=== PATIENT | female | born 1975 | race African-American/Black ===

== ENCOUNTER 2017-12-07 12:05 | Emergency (ER) | payer OTHER ==
[2017-12-07 12:15] VITALS: BP 125/71; PULSE 75; TEMP 98; BMI 32.9
--- NOTE | 2017-12-07 12:57 | PDOC ---
History of Present Illness - General Chief Complaint: Injury Stated Complaint: EAR LOBE INJURY Time Seen by Provider: 12/07/17 12:22 Past History - Past Medical History Allergies/Adverse Reactions: Allergies Allergy/AdvReac Type Severity Reaction Status Date / Time Penicillins Allergy Swelling Verified 12/07/17 12:10 Home Medications: Ambulatory Orders Clonazepam [Klonopin] 1 mg PO BID PRN 12/07/17 Sertraline HCl [Zoloft] 100 mg PO DAILY 12/07/17 Asthma: No Cancer: No Cardiac Disorders: No COPD: No Diabetes: No HTN: No Psychiatric Problems: Yes (anxiety) Seizures: No Thyroid Disease: No - Suicide/Smoking/Psychosocial Hx Smoking History: Never smoked Have you smoked in the past 12 months: No Information on smoking cessation initiated: No Hx Alcohol Use: No Drug/Substance Use Hx: No Substance Use Type: None Hx Substance Use Treatment: No *Physical Exam - Vital Signs Last Vital Signs Temp Pulse Resp BP Pulse Ox 98 F 75 16 125/71 100 12/07/17 12:05 12/07/17 12:05 12/07/17 12:05 12/07/17 12:05 12/07/17 12:05 *DC/Admit/Observation/Transfer Diagnosis at time of Disposition: Foreign body in ear, bilateral Qualifiers: Encounter type: initial encounter Qualified Code(s): T16.1XXA - Foreign body in right ear, initial encounter; T16.2XXA - Foreign body in left ear, initial encounter - Discharge Dispostion Disposition: HOME Condition at time of disposition: Good Decision to Admit order: No - Referrals Referrals: Sanjiv Howard MD [Primary Care Provider] - - Patient Instructions Printed Discharge Instructions: DI for Removal of Foreign Body From Ear Additional Instructions: Your earrings were removed today. Please do not put any new earring into the ear until the whole has healed. Use bacitracin to the area to prevent infection. Follow-up With her primary care doctor. Return to the emergency department if you have increased fevers, chills, headache, or any changes in your symptoms. - Post Discharge Activity Forms/Work/School Notes: Back to Work
== END 2017-12-07 13:48 | disposition home or self-care (01) ==
LOC: JERFT 12:05
DX: T16.1XXA Foreign body in right ear, initial encounter (principal); T16.2XXA Foreign body in left ear, initial encounter; F41.9 Anxiety disorder, unspecified
CPT/HCPCS: 99281-25

== ENCOUNTER 2018-09-10 10:55 | Emergency (ER) | payer OTHER ==
[2018-09-10 11:27] VITALS: BP 123/77; PULSE 95; TEMP 98.3; BMI 29.2
--- NOTE | 2018-09-10 12:36 | PDOC ---
History of Present Illness - General Chief Complaint: Cold Symptoms Stated Complaint: COLD SYMPTOMS Time Seen by Provider: 09/10/18 12:10 - History of Present Illness Initial Comments: 09/10/18 12:31 43-year-old female with a past medical history significant for anxiety presents for evaluation of sinus congestion pressure and headaches 6 days chills and night sweats no fevers Past History - Past Medical History Allergies/Adverse Reactions: Allergies Allergy/AdvReac Type Severity Reaction Status Date / Time No Known Allergies Allergy Verified 09/10/18 12:31 Home Medications: Ambulatory Orders Clonazepam [Klonopin] 1 mg PO BID PRN 12/07/17 Sertraline HCl [Zoloft] 100 mg PO DAILY 12/07/17 Amox-Tr/K Cl [Augmentin - 875Mg Tablet] 1 tab PO BID #20 tablet 09/10/18 Budesonide [Rhinocort Allergy] 1 spray NS ONCE #1 spray.pump 09/10/18 Asthma: No Cancer: No Cardiac Disorders: No COPD: No Diabetes: No HTN: No Psychiatric Problems: Yes (anxiety) Seizures: No Thyroid Disease: No - Suicide/Smoking/Psychosocial Hx Smoking History: Never smoked Have you smoked in the past 12 months: No Hx Alcohol Use: No Drug/Substance Use Hx: No Substance Use Type: None Hx Substance Use Treatment: No Review of Systems - Review of Systems Constitutional: Yes: Chills, Malaise, Night Sweats. No: Fever HEENTM: Yes: Nose Congestion Respiratory: Yes: Cough *Physical Exam - Vital Signs Last Vital Signs Temp Pulse Resp BP Pulse Ox 98.3 F 95 H 20 123/77 99 09/10/18 11:24 09/10/18 11:24 09/10/18 11:24 09/10/18 11:24 09/10/18 11:24 - Physical Exam Comments: 09/10/18 12:31 HEAD: NC/AT EYES: Conjuntiva clear Ears: Canals and TM's normal NOSE: Clear discharge with injected turbinates THROAT: Moist mucous membrances, oral pharanx clear, uvula midline NECK: Supple without adenopathy CARDIAC: S1 S2 LUNGS: CTA Full and Equal breath sounds ABDOMEN: Soft NT ND MS: Full ROM in all joints without edema NEUROLOGIC: No gross sensory or motor deficits, NVID SKIN: Normal color and temperature no lesions or rashes Moderate Sedation - Procedure Monitoring Vital Signs: Procedure Monitoring Vital Signs Temperature 98.3 F 09/10/18 11:24 Pulse Rate 95 H 09/10/18 11:24 Respiratory Rate 20 09/10/18 11:24 Blood Pressure 123/77 09/10/18 11:24 O2 Sat by Pulse Oximetry (%) 99 09/10/18 11:24 Medical Decision Making - Medical Decision Making 09/10/18 12:34 Symptoms and history consistent with a bacterial sinusitis I will treat her. Her prior charts she has a history of penicillin ALLERGIES however she states she is not ALLERGIC to penicillin she's had penicillin in the past without rashes or anaphylactic or adverse reactions. I will have her follow-up with ENT. *DC/Admit/Observation/Transfer Diagnosis at time of Disposition: Sinusitis - Discharge Dispostion Disposition: HOME Condition at time of disposition: Stable Decision to Admit order: No - Referrals Referrals: Nima Blunt MD [Staff Physician] - - Patient Instructions Printed Discharge Instructions: Sinusitis, DI for Sinusitis Additional Instructions: Please take the antibiotics and use the nasal spray as directed. Follow-up with ENT as directed one to 2 days for further evaluation and treatment options. Return to the emergency room for worsening symptoms - Post Discharge Activity
== END 2018-09-10 12:42 | disposition home or self-care (01) ==
LOC: JER 10:55 → JERFT 10:55
DX: J01.90 Acute sinusitis, unspecified (principal)
CPT/HCPCS: 99281-25

== ENCOUNTER 2018-09-27 16:21 | Emergency (ER) | payer OTHER ==
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
[2018-09-27 16:33] VITALS: BP 112/74; PULSE 83; TEMP 98.3; BMI 29.1
[2018-09-27] MEDS ORDERED: IBUPROFEN 400 MG TABLET (FP) PO ONE ×2 (17:14→17:17)
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
== END 2018-09-27 17:41 | disposition home or self-care (01) ==
LOC: JERFT 16:21
DX: S46.811A Strain of other muscles, fascia and tendons at shoulder and upper arm level, right arm, initial encounter (principal); S86.811A Strain of other muscle(s) and tendon(s) at lower leg level, right leg, initial encounter; V48.6XXA Car passenger injured in noncollision transport accident in traffic accident, initial encounter; Y92.414 Local residential or business street as the place of occurrence of the external cause; Y93.89 Activity, other specified; Y99.8 Other external cause status
CPT/HCPCS: 99281-25

== ENCOUNTER 2019-02-08 09:21 | Emergency (ER) | payer SELFPAY ==
[2019-02-08 09:28] VITALS: BMI 34.4
--- NOTE | 2019-02-08 10:43 | PDOC ---
History of Present Illness - General Chief Complaint: Pain Stated Complaint: LT FOOT INJURY Time Seen by Provider: 02/08/19 09:40 History Source: Patient Exam Limitations: No Limitations - History of Present Illness Initial Comments: 02/08/19 10:07 43-year-old female presents to ED with complaints of left foot pain over her surgical site which she states 2 weeks ago had a neuroma and so the bone was shaved to alleviate discomfort on the nerve. Patient states has had discomfort past 4-5 days worsening with ambulation and did not contact the surgeon but came to the ER for further evaluation. Patient denies any numbness tingling to area decreased range of motion, swelling or redness. Timing/Duration: other Severity: mild Associated Symptoms: reports: denies symptoms Past History - Travel Traveled outside of the country in the last 30 days: No Close contact w/someone who was outside of country & ill: No - Past Medical History Allergies/Adverse Reactions: Allergies Allergy/AdvReac Type Severity Reaction Status Date / Time No Known Allergies Allergy Verified 02/08/19 09:25 Home Medications: Ambulatory Orders Clonazepam [Klonopin] 1 mg PO BID PRN 12/07/17 Sertraline HCl [Zoloft] 100 mg PO DAILY 12/07/17 Asthma: No Cancer: No Cardiac Disorders: No COPD: No Diabetes: No HTN: No Psychiatric Problems: Yes (anxiety) Seizures: No Thyroid Disease: No - Suicide/Smoking/Psychosocial Hx Smoking History: Never smoked Have you smoked in the past 12 months: No Hx Alcohol Use: No Drug/Substance Use Hx: No Substance Use Type: None Hx Substance Use Treatment: No Patient Lives Alone: No Lives with/in: spouse/SO Review of Systems - Review of Systems Able to Perform ROS?: Yes Constitutional: No: Symptoms Reported Musculoskeletal: Yes: Joint Pain (left foot) Integumentary: No: Symptoms Reported Neurological: No: Numbness, Tingling, Weakness *Physical Exam - Vital Signs Last Vital Signs Temp Pulse Resp BP Pulse Ox 98.6 F 78 18 120/77 99 02/08/19 09:22 02/08/19 09:22 02/08/19 09:22 02/08/19 09:22 02/08/19 09:22 - Physical Exam General Appearance: Yes: Nourished, Appropriately Dressed. No: Apparent Distress Vascular Pulses: Doralis-Pedis (L): 2+ Extremity: positive: Normal Capillary Refill, Normal Inspection, Normal Range of Motion, Tender (over the third metatarsal of the left foot near intact healed scar at the base of her third toe and distal aspect of metatarsal. No increased warmth no skin discoloration and no fluctuance no decreased sensation) Integumentary: positive: Normal Color, Warm, Moist Neurologic: positive: Motor Strength 5/5 (ambulatory) ED Treatment Course - RADIOLOGY Radiology Studies Ordered: Category Date Time Status FOOT-LEFT [RAD] Stat Radiology 02/08/19 09:51 Completed Medical Decision Making - Medical Decision Making 02/08/19 10:09 CC: Left foot pain with past 4-5 days worsening with ambulation patient had a neuroma with surgical correction involving bone removal 2 weeks ago by a senior contract specialist. No other complaints Exam: Tender over the third metatarsal and near the incision no abnormal findings Plan: Foot x-ray to the visualized bones and possible spur formation 02/08/19 10:41 X-ray negative for acute pathology patient recommended to massage area to alleviate any adhesions and take NSAID such as Motrin for discomfort *DC/Admit/Observation/Transfer Diagnosis at time of Disposition: Left foot pain - Discharge Dispostion Disposition: HOME Condition at time of disposition: Good - Referrals Referrals: Sanjiv Howard MD [Primary Care Provider] - - Patient Instructions Printed Discharge Instructions: DI for Foot Pain Additional Instructions: I recommended to massage area to alleviate any adhesions and take NSAID such as Motrin for discomfort. Also follow up with surgeon - Post Discharge Activity
[2019-02-08 18:43] VITALS: BP 112/78; PULSE 67; TEMP 97
== END 2019-02-08 11:05 | disposition home or self-care (01) ==
LOC: JERFT 09:21 → JER 09:21 → JERFT 11:05
DX: M79.672 Pain in left foot (principal); F41.9 Anxiety disorder, unspecified
CPT/HCPCS: 73630-TC-LT; 99282-25

== ENCOUNTER 2019-09-05 06:18 | Day surgery (SDC) | payer OTHER ==
[2019-09-03 12:09] VITALS: BMI 35.7
[2019-09-05] MEDS ORDERED: ROPIVACAINE HCL 0.5% 30ML VIAL ONE ×2 (07:32→07:38)
[2019-09-05] MEDS ORDERED: MIDAZOLAM HCL 2 MG/2 ML SINGLE DOSE VIAL ONE ×2 (07:44→07:45)
--- NOTE | 2019-09-05 08:08 | HP ---
Admitting History and Physical - Admission Chief Complaint: left inguinal pain and bulge History Source: Patient <Naveed Tobar - Last Filed: 09/05/19 08:31> - Admission History of Present Illness: The patient is a 44 yo female who present today for surgery with Dr. TOBAR. She was seen in his office for left inguinal intermittent pain and buldge and being seen by her PMD. Her pMD also obtained an abdominal CT scan which revealed b/l fat containing inguinal hernias. She denies any abd pain today, no nausea or chills. History Source: Patient Limitations to Obtaining History: No Limitations - Past Medical History Cardiovascular: No: Deep Vein Thrombosis, HTN Pulmonary: No: Asthma Gastrointestinal: Yes: Constipation. No: Gastritis, GERD Renal/: No: Renal Failure, Hematuria, Renal Calculi, UTI ...LMP: 08/26/19 ...: No Psych: Yes: Anxiety, Depression Musculoskeletal: Yes: Chronic low back pain - Past Surgical History Additional Past Surgical History: surgery to left ankle - Smoking History Smoking history: Never smoked Have you smoked in the past 12 months: No - Alcohol/Substance Use Hx Alcohol Use: Yes (rare) <Jazmin Bernal - Last Filed: 09/05/19 12:10> Home Medications <AmadouNaveed - Last Filed: 09/05/19 08:31> <Jazmin Bernal - Last Filed: 09/05/19 12:10> - Allergies Allergies/Adverse Reactions: Allergies Allergy/AdvReac Type Severity Reaction Status Date / Time No Known Allergies Allergy Verified 09/05/19 07:08 - Home Medications Home Medications: Ambulatory Orders Clonazepam [Klonopin] 1 mg PO BID PRN 12/07/17 Sertraline HCl [Zoloft] 50 mg PO DAILY 12/07/17 oxyCODONE HCL [Roxicodone -] 5 mg PO Q6H PRN #20 tablet MDD 6 09/05/19 Review of Systems - Review of Systems Constitutional: denies: Chills, Fever Neck: denies: Decreased ROM, Pain on Movement Cardiovascular: denies: Chest Pain, Edema, Palpitations Respiratory: denies: Cough, Snoring, SOB Gastrointestinal: reports: Constipation. denies: Abdominal Pain, Nausea Genitourinary: denies: Burning, Dysuria, Hematuria Musculoskeletal: reports: Back Pain (lower intermittent back pain) Integumentary: denies: Blister, Bruising Neurological: denies: Headache, Numbness, Parasthesia Hematology/Lymphatic: denies: Easily Bruised, Excessive Bleeding Psychiatric: reports: Anxiety, Depression <Jazmin Bernal - Last Filed: 09/05/19 12:10> Physical Examination Vital Signs: Vital Signs Temperature 98.1 F 09/05/19 07:07 Pulse Rate 87 09/05/19 07:07 Respiratory Rate 09/05/19 07:07 Blood Pressure 123/89 09/05/19 07:07 O2 Sat by Pulse Oximetry (%) 99 09/05/19 07:00 Constitutional: Yes: Well Nourished, No Distress Eyes: Yes: Conjunctiva Clear HENT: Yes: Normocephalic Neck: Yes: Supple Cardiovascular: Yes: Regular Rate and Rhythm Respiratory: Yes: CTA Bilaterally Gastrointestinal: Yes: Normal Bowel Sounds, Soft, Hernia (left inguinal bulge on Valsalva maneuver, questionable right inguinal bulge) ...Rectal Exam: Yes: Deferred Renal/: Yes: WNL Extremities: Yes: WNL Edema: No Integumentary: Yes: WNL Neurological: Yes: Alert, Oriented ...Motor Strength: WNL Psychiatric: Yes: Alert, Oriented <Naveed Tobar - Last Filed: 09/05/19 08:31> Vital Signs: Vital Signs Temperature 98.1 F 09/05/19 07:07 Pulse Rate 87 09/05/19 07:07 Respiratory Rate 09/05/19 07:07 Blood Pressure 123/89 09/05/19 07:07 O2 Sat by Pulse Oximetry (%) 99 09/05/19 07:00 Constitutional: Yes: Well Nourished, No Distress Eyes: Yes: Conjunctiva Clear HENT: Yes: Normocephalic Neck: Yes: Supple Cardiovascular: Yes: Regular Rate and Rhythm Respiratory: Yes: CTA Bilaterally Gastrointestinal: Yes: Normal Bowel Sounds, Soft, Hernia ...Rectal Exam: Yes: Deferred <Jazmin Bernal - Last Filed: 09/05/19 12:10> Imaging - Results Cat Scan: Report Reviewed, Image Reviewed <Naveed Tobar - Last Filed: 09/05/19 08:31> Problem List - Problems (1) Left inguinal hernia Assessment/Plan: possible bilateral inguinal hernias robotic LIH repair with mesh, possible bilateral repair Code(s): K40.90 - UNIL INGUINAL HERNIA, W/O OBST OR GANGR, NOT SPCF RECUR <Naveed Tobar - Last Filed: 09/05/19 08:31>
[2019-09-05] MEDS ORDERED: LIDOCAINE HCL/PF 2% SDV 5ML VIAL ONE (08:16)
[2019-09-05] MEDS ORDERED: ROCURONIUM BROMIDE 50 MG/5 ML SYRINGE ONE ×3 (08:16→10:05)
[2019-09-05] MEDS ORDERED: fentaNYL CITRATE 250 MCG/5 ML VIAL ONE (08:16)
[2019-09-05] MEDS ORDERED: ceFAZolin SODIUM 1 GM VIAL ONE (08:16)
[2019-09-05] MEDS ORDERED: PROPOFOL 20 ML ONE ×2 (08:16)
[2019-09-05] MEDS ORDERED: ceFAZolin SODIUM 1 GM VIAL IVPB ONE (08:46)
[2019-09-05] MEDS ORDERED: DEXAMETHASONE SOD PHOSPHATE 4 MG/1 ML VIAL ONE (08:54)
[2019-09-05] MEDS ORDERED: NEOSTIGMINE METHYLSULFATE 0.5 MG/ML - 10 ML MDV ONE (10:05)
[2019-09-05] MEDS ORDERED: GLYCOPYRROLATE 0.2 MG/1 ML VIAL ONE (10:05)
[2019-09-05] MEDS ORDERED: oxyCODONE HCL 5 MG TABLET PO PRN ×2 (11:32→12:35)
[2019-09-05] MEDS ORDERED: IBUPROFEN 800 MG/8 ML IJ IVPB PRN (11:32)
[2019-09-05] MEDS ORDERED: ONDANSETRON 4 MG/2 ML VIAL IVPUSH PRN (11:32)
[2019-09-05] MEDS ORDERED: ACETAMINOPHEN 1000 MG/100 ML VIAL (NON FORMULARY) IVPB PRN (11:33)
--- NOTE | 2019-09-05 11:43 | OP ---
Operative Note - Note: Operative Date: 09/05/19 Pre-Operative Diagnosis: b/l inguinal hernia Operation: laparoscopic robotic assited bilateral inguinal hernia Surgeon: Naveed Tobar Licensed Marriage And Family Therapist: Jazmin Bernal Anesthesiologist/INTERNET SALES REPRESENTATIVE: Randi Mccloud Estimated Blood Loss (mls): 20 Drains, Volume Out (mls): 500 (rosa) Fluid Volume Replaced (mls): 800 Operative Report Dictated: Yes
[2019-09-05] MEDS ORDERED: LACTATED RINGERS SOLUTION 1,000 ML IV SCH (11:45)
--- NOTE | 2019-09-05 11:45 | SURG ---
Surgery Senior Logistics Manager Note Senior Logistics Manager: Jazmin Bernal PA-C Date of Service: 09/05/19 Diagnosis: b/l inguinal hernia Procedure: laparoscopic robotic assisted bilateral inguinal hernia I was present for the entirety of the operative procedure. For further detail, please refer to operative report. Visit type - Case Type Case Type: Scheduled - Emergency Emergency Visit: No - New patient This patient is new to me today: Yes Date on this admission: 09/05/19
[2019-09-05] MEDS ORDERED: ACETAMINOPHEN INJECTION 100 ML IVPB ONE (11:48)
[2019-09-05] MEDS ORDERED: IBUPROFEN 800 MG/8 ML IJ IVPB ONE (11:52)
[2019-09-05] MEDS ORDERED: ONDANSETRON 4 MG/2 ML VIAL ONE ×2 (12:52→15:19)
[2019-09-05 17:43] VITALS: PULSE 78
[2019-09-05 17:46] VITALS: BP 140/70; TEMP 98.2
--- NOTE | 2019-09-08 08:48 | OP ---
DATE OF OPERATION: 09/05/2019 PROCEDURE: Robotic-assisted laparoscopic bilateral inguinal hernia repair with mesh. PREOPERATIVE DIAGNOSIS: Left inguinal hernia, rule out bilateral inguinal hernia. POSTOPERATIVE DIAGNOSIS: Bilateral inguinal hernia. SURGEON: Naveed Tobar MD SUGAR CONTROLLER: DAYANARA Fontaine ANESTHESIA: General endotracheal. FINDINGS AND PROCEDURE: This is a 44-year-old female who presented with a [id number]-year history of left inguinal pain associated with a bulge in her groin. The patient on physical exam had visible inguinal bulge which was reducible and a somewhat questionable right inguinal bulge so we recommend a right inguinal hernia repair . A CT scan of the abdomen and pelvis revealed bilateral fat-containing femoral with right side more than the left side. So, patient was advised robotic inguinal hernia repair of the right inguinal canal with possible bilateral hernia repair. On the day of the procedure, patient was also complaining of bilateral inguinal pain. Informed consent was obtained after discussing the risks, benefits, and alternatives to the procedure. Patient was brought to the operating room and placed on the table in supine position. General endotracheal anesthesia was administered. The abdomen was prepped and draped in the usual sterile fashion. Both arms were tucked to the sides. The peritoneal cavity was entered using the Veress needle technique via an 8-mm supraumbilical incision. Pneumoperitoneum was established. An 8-mm port was then inserted into the peritoneal cavity. This was followed by insertion of a 3D laparoscope, and the peritoneal cavity was carefully inspected and was noted to be free of inadvertent injury. Patient was then placed in steep Trendelenburg position. There was indentation of both the inguinal canals with the left more than the right side. Two 8-mm ports were inserted on each side of the midline 8 cm away from each other ____ position. Afterwards, the target organ was set and the robotic arms were docked. The fenestrated bipolar instrument was inserted into the left-sided port, and the EndoWrist brandon connected to monopolar cautery was inserted at the right-sided port. The undersigned then scrubbed out to commence the console part of the procedure. The left inguinal canal was addressed first by incising the peritoneum at the level of the anterior-superior iliac spine using the EndoWrist brandon. A pocket was then created by dissecting the preperitoneal space between the inferior epigastric vessels as the landmark. Dissection was carried laterally towards the anterior-superior iliac spine inferiorly towards the psoas muscle. Medially, the dissection was carried towards the underside of the symphysis pubis. The femoral canal was carefully inspected, and small indentation containing a small amount of preperitoneal fat. This was carefully dissected away from the femoral canal. The large preperitoneal fat along the round ligament was reduced from the internal ring all the way down as far back as possible. The internal ring was then carefully inspected and there was no of herniated preperitoneal fat. The peritoneal reflection was dissected away from the round ligament as possible the mesh. After dissection was deemed satisfactory, the right inguinal canal was explored. a small amount of preperitoneal fat was herniated into the internal ring. Dissection was carefully taken down to clear the internal ring of preperitoneal fat. The round ligament, which was severely attenuated on the right side, was also as possible. The dissection was carried medially towards the , and again, a small indentation of the femoral canal was noted and this was filled with preperitoneal fat. Dissection was carried towards the anterior-superior iliac spine and inferiorly towards the psoas muscle. After the dissection was deemed satisfactory, right-sided and left-sided pelvic muscles were closed to cover the internal ring, the femoral canal, and the inguinal floor. After deployment was deemed satisfactory, the peritoneal pockets were closed with a continuous V-Loc 2-0 absorbable suture. Peritoneal cavity was again carefully inspected and was noted to be free of any active bleeding. The instruments were removed and the . The robotic arms were undocked, and the pneumoperitoneum was evacuated and the ports were removed and the wounds were closed with subcuticular Biosyn 4-0 sutures. Skin closed with Dermabond. The patient was successfully extubated and transferred to the postanesthesia care unit in satisfactory condition. Estimated blood loss was about 15 mL. Wound class: Clean. The patient received a gram of Ancef prior to the start of the procedure. Jenna [id number]
== END 2019-09-05 17:30 | disposition home or self-care (01) ==
LOC: JASU-SURG 06:18
PROVIDERS: ATTEND Surgery
PROC: 8E0W4CZ Robotic Assisted Procedure of Trunk Region, Percutaneous Endoscopic Approach (ICD-10-PCS; 2019-09-05)
PROC: 0YUA4JZ Supplement Bilateral Inguinal Region with Synthetic Substitute, Percutaneous Endoscopic Approach (ICD-10-PCS; principal; 2019-09-05 08:00)
DX: K40.20 Bilateral inguinal hernia, without obstruction or gangrene, not specified as recurrent (principal)
CPT/HCPCS: 49650; S2900; 84703; 94760; J0131

== ENCOUNTER 2020-01-14 19:20 | Emergency (ER) | payer OTHER ==
[2020-01-14 19:32] VITALS: BP 105/79; PULSE 84; TEMP 98.4; BMI 31.6
--- NOTE | 2020-01-14 20:16 | PDOC ---
History of Present Illness - General Chief Complaint: Injury Stated Complaint: TOE INJURY Time Seen by Provider: 01/14/20 19:38 - History of Present Illness Initial Comments: 01/14/20 20:15 44-year-old female without comorbidities presents for evaluation of right great toe pain after dropping a heavy cup of coffee on it earlier today. She points to the dorsum of the right great toe as the area of discomfort Past History - Medical History Allergies/Adverse Reactions: Allergies Allergy/AdvReac Type Severity Reaction Status Date / Time No Known Allergies Allergy Verified 09/05/19 07:08 Home Medications: Ambulatory Orders Clonazepam [Klonopin] 1 mg PO BID PRN 12/07/17 Sertraline HCl [Zoloft] 50 mg PO DAILY 12/07/17 Docusate Sodium [Colace -] 100 mg PO TID PRN #90 capsule 09/05/19 oxyCODONE HCL [Roxicodone -] 5 mg PO Q6H PRN #20 tablet MDD 6 09/05/19 Anemia: No Asthma: No Cancer: No Cardiac Disorders: No CVA: No COPD: No CHF: No Dementia: No Diabetes: No GI Disorders: No Disorders: No HTN: No Hypercholesterolemia: No Liver Disease: No Psychiatric Problems: Yes (anxiety) Seizures: No Thyroid Disease: No - Surgical History Abdominal Surgery: No Appendectomy: No Cardiac Surgery: No Cholecystectomy: No Lung Surgery: No Neurologic Surgery: No Orthopedic Surgery: Yes (2019 left foot) - Psycho-Social/Smoking History Smoking History: Never smoked Have you smoked in the past 12 months: No - Substance Abuse Hx (Audit-C & DAST Scrn) How often the patient has a drink containing alcohol: Never Score: In Men: 4 or > Positive; In Women: 3 or > Positive: 0 Screen Result (Pos requires Nsg. Audit-10AR): Negative Review of Systems - Review of Systems Musculoskeletal: Yes: See HPI *Physical Exam - Vital Signs Last Vital Signs Temp Pulse Resp BP Pulse Ox 98.4 F 84 20 105/79 99 01/14/20 19:29 01/14/20 19:29 01/14/20 19:29 01/14/20 19:29 01/14/20 19:29 - Physical Exam 01/14/20 20:15 Right great toe skin color and temperature normal mild tenderness about the IPJ. Decreased range of motion no gross sensorimotor deficits neurovascular intact ED Treatment Course - RADIOLOGY Radiology Studies Ordered: Category Date Time Status TOE(S) RIGHT [RAD] Stat Radiology 01/14/20 19:54 Taken Medical Decision Making - Medical Decision Making 01/14/20 20:15 No evidence of fracture trauma or destructive process on radiograph. Right great toe contusion follow-up with orthopedic surgery I have reviewed the pathophysiology with the patient. They are in agreement with the treatment plan all questions were answered to their satisfaction. Understanding for follow-up without fail was also conveyed to the patient. Again they are in agreement. Discharge - Discharge Information Problems reviewed: Yes Clinical Impression/Diagnosis: Contusion of toe of right foot Condition: Stable Disposition: HOME - Admission No - Follow up/Referral Referrals: Sanjiv Howard MD [Primary Care Provider] - Esteban Levin DO [Staff Physician] - - Patient Discharge Instructions Additional Instructions: Return to the emergency room for worsening symptoms and without fail follow-up with orthopedic surgery in 1 to 2 days for further evaluation and treatment options. Tylenol Motrin as directed for pain. - Post Discharge Activity
== END 2020-01-14 21:19 | disposition home or self-care (01) ==
LOC: JER 19:20
DX: S90.111A Contusion of right great toe without damage to nail, initial encounter (principal)
CPT/HCPCS: 73660-TC-FY; 99283-25

== ENCOUNTER 2020-08-06 14:16 | Emergency (ER) | payer OTHER ==
[2020-08-06 14:51] VITALS: BP 120/84; PULSE 88; TEMP 98.6; BMI 36.4
== END 2020-08-06 17:38 | disposition home or self-care (01) ==
LOC: JERFT 14:16
DX: M79.604 Pain in right leg (principal)
CPT/HCPCS: 73562-TC-RT-FY; 93971-TC; 99284-25

== ENCOUNTER 2022-04-27 17:35 | Emergency (ER) | payer OTHER ==
[2022-04-27 18:21] VITALS: BP 123/84; PULSE 98; RESP 18; TEMP 98.1; BMI 35.7
[2022-04-27 19:45] LABS: BASO % 0.5 % (0-2.0); EOS % 1.3 % (0-4.5); HEMATOCRIT 31.2 % (32.4-45.2); HEMOGLOBIN 9.9 GM/dL (10.7-15.3); LYMPH % 49.3 % (8-40); MCH 26.1 pg (25.7-33.7); MCHC 31.8 g/dl (32.0-36.0); MEAN CELL VOLUME 81.8 fl (80-96); MEAN PLT VOLUME 8.1 fl (7.5-11.1); MONO % 9.7 % (3.8-10.2); NEUT % 39.2 % (42.8-82.8); PLATELET COUNT 290 10^3/uL (134-434); RBC 3.81 M/mm3 (3.60-5.2); RDW 16.5 % (11.6-15.6); WHITE BLOOD COUNT 6.2 K/mm3 (4.0-10.0)
[2022-04-27 19:55] LABS: CALCIUM 8.6 mg/dL (8.5-10.1)
[2022-04-27 19:56] LABS: BLOOD UREA NITROGEN 9.4 mg/dL (7-18)
[2022-04-27 19:59] LABS: CREATININE 0.8 mg/dL (0.55-1.3)
[2022-04-27 22:58] LABS: EPI CELLS 28 /uL (0-25.1); HYALINE CASTS 1 /uL (0-3.1); PH,URINE 5.5 (5.0-8.0); URINE APPEARANCE CLEAR; URINE BILIRUBIN NEGATIVE (NEGATIVE); URINE COLOR YELLOW; URINE GLUCOSE (UA) NEGATIVE (NEGATIVE); URINE KETONE TRACE (NEGATIVE); URINE LEUK ESTERASE NEGATIVE (NEGATIVE); URINE NITRITE NEGATIVE (NEGATIVE); URINE PROTEIN NEGATIVE (NEGATIVE); URINE RBC 12 /uL (0-23.9); URINE UROBILINOGEN 0.2 mg/dL (0.2-1.0); URINE WBC 7 /uL (0-25.8)
[2022-04-27 23:04] LABS: HCG,QUALITATIVE URINE Negative
[2022-04-27 23:16] LABS: URINE BACTERIA 39 /uL (0-1359)
== END 2022-04-27 23:41 | disposition home or self-care (01) ==
LOC: JER 17:35
DX: N93.9 Abnormal uterine and vaginal bleeding, unspecified (principal)
CPT/HCPCS: 36415; 76830-TC; 80048; 81003; 84703; 85025; 86850; 86900; 86901; 87086; 99284-25

== ENCOUNTER 2022-10-05 04:05 | Day surgery (SDC) | payer OTHER ==
[2022-09-18 13:46] VITALS: BMI 34.1
[2022-10-05] MEDS ORDERED: PROPOFOL 40 ML ONE (09:42)
[2022-10-05] MEDS ORDERED: ONDANSETRON 4 MG/2 ML VIAL ONE (10:00)
[2022-10-05] MEDS ORDERED: DEXAMETHASONE SOD PHOSPHATE 4 MG/1 ML VIAL ONE (10:00)
[2022-10-05] MEDS ORDERED: KETOROLAC TROMETHAMINE 30 MG/1 ML VIAL ONE (10:00)
[2022-10-05] MEDS ORDERED: ceFAZolin SODIUM 1 GM VIAL IVPB ONE (10:13)
[2022-10-05] MEDS ORDERED: oxyCODONE HCL 5 MG TABLET PO PRN ×2 (11:08→11:37)
[2022-10-05] MEDS ORDERED: ONDANSETRON 4 MG/2 ML VIAL IVPUSH PRN ×2 (11:08→11:37)
[2022-10-05] MEDS ORDERED: IBUPROFEN 600 MG TABLET (FP) PO PRN (11:37)
[2022-10-05] MEDS ORDERED: IBUPROFEN 800 MG/8 ML IJ IVPB PRN (11:37)
[2022-10-05] MEDS ORDERED: ELECTROLYTE-148 SOLN 1,000 ML IV SCH (11:45)
[2022-10-05 13:06] VITALS: RESP 18
[2022-10-05 14:26] VITALS: BP 127/77; PULSE 86; TEMP 97.5
== END 2022-10-05 14:30 | disposition home or self-care (01) ==
LOC: JASU-SURG 04:05
PROVIDERS: ATTEND Obstetrics & Gynecology
PROC: 0U5B8ZZ Destruction of Endometrium, Via Natural or Artificial Opening Endoscopic (ICD-10-PCS; principal; 2022-10-05 10:00)
DX: N92.0 Excessive and frequent menstruation with regular cycle (principal); D64.9 Anemia, unspecified
CPT/HCPCS: 81025; 94760

== ENCOUNTER 2022-11-19 13:34 | Emergency (ER) | payer OTHER ==
[2022-11-19 13:39] VITALS: BP 131/80; PULSE 88; RESP 18; TEMP 99.2; BMI 37.4
== END 2022-11-19 15:09 | disposition home or self-care (01) ==
LOC: JERFT 13:34
DX: M25.561 Pain in right knee (principal); S89.91XA Unspecified injury of right lower leg, initial encounter; W19.XXXA Unspecified fall, initial encounter
CPT/HCPCS: 73562-TC-RT-FY; 99283-25

== ENCOUNTER 2023-02-04 13:14 | Emergency (ER) | payer OTHER ==
[2023-02-04 13:20] VITALS: BP 129/88; PULSE 89; RESP 16; TEMP 98.1; BMI 36.6
== END 2023-02-04 15:13 | disposition home or self-care (01) ==
LOC: JERFT 13:14
DX: H66.001 Acute suppurative otitis media without spontaneous rupture of ear drum, right ear (principal); H65.01 Acute serous otitis media, right ear; H92.01 Otalgia, right ear
CPT/HCPCS: 99282-25

== ENCOUNTER → 2023-04-18 | Day surgery (SDC) | payer OTHER | END | disposition home or self-care (01) | LOC: JRADIR 10:14 | PROVIDERS: ATTEND Otolaryngology | PROC: 0G9G3ZX Drainage of Left Thyroid Gland Lobe, Percutaneous Approach, Diagnostic (ICD-10-PCS; principal; 2023-04-18) | DX: E04.1 Nontoxic single thyroid nodule (principal) | CPT/HCPCS: 10005; 76942 ==

== ENCOUNTER 2024-12-19 05:33 | Day surgery (SDC) | payer OTHER ==
[2024-12-15 11:29] VITALS: BMI 36.6
[2024-12-19] MEDS: LIDOCAINE HCL 1% PRESERVATIVE FREE - 30ML VIAL IJ ONE (12:40)
[2024-12-19] MEDS: IOHEXOL 180 MG/1 ML ML IJ ONE (12:45)
[2024-12-19] MEDS: DEXAMETHASONE SOD PHOSPHATE 10 MG/1 ML VIAL IVPUSH ONE (12:48)
[2024-12-19 13:04] VITALS: BP 125/75; PULSE 71; RESP 18; TEMP 97.6
== END 2024-12-19 13:15 | disposition home or self-care (01) ==
LOC: JASU-SURG 05:33
PROVIDERS: ATTEND Pain Medicine Pain Medicine
PROC: 3E0R3BZ Introduction of Anesthetic Agent into Spinal Canal, Percutaneous Approach (ICD-10-PCS; 2024-12-19)
PROC: 3E0R33Z Introduction of Anti-inflammatory into Spinal Canal, Percutaneous Approach (ICD-10-PCS; principal; 2024-12-19 12:40)
DX: M54.16 Radiculopathy, lumbar region (principal)
CPT/HCPCS: 76000-TC-FY; 81025; J1100

== ENCOUNTER 2025-01-15 06:11 | Day surgery (SDC) | payer OTHER ==
[2025-01-15] MEDS ORDERED: ACETAMINOPHEN 500 MG TABLET (FP) PO PRN (09:17)
[2025-01-15 12:28] VITALS: RESP 18
[2025-01-15] MEDS: LIDOCAINE HCL 1% PRESERVATIVE FREE - 30ML VIAL IJ ONE ×2 (13:24)
[2025-01-15] MEDS: TRIAMCINOLONE ACET 40MG/1ML VIAL IM ONE ×2 (13:24)
[2025-01-15] MEDS: BUPIVACAINE HCL/PF 0.5% (5 MG/ML) 30 ML VIAL IJ ONE ×3 (13:24)
[2025-01-15] MEDS: IOHEXOL 180 MG/1 ML ML IJ ONE ×2 (13:24)
[2025-01-15 14:38] VITALS: BP 126/71; PULSE 74; TEMP 97.8
== END 2025-01-15 13:45 | disposition home or self-care (01) ==
LOC: JASU-SURG 06:11
PROVIDERS: ATTEND Pain Medicine Pain Medicine
PROC: 3E0U3BZ Introduction of Anesthetic Agent into Joints, Percutaneous Approach (ICD-10-PCS; 2025-01-15)
PROC: 3E0U33Z Introduction of Anti-inflammatory into Joints, Percutaneous Approach (ICD-10-PCS; principal; 2025-01-15 13:00)
DX: M53.3 Sacrococcygeal disorders, not elsewhere classified (principal)
CPT/HCPCS: 76000-TC-FY